=== PATIENT | female | born 1950 | race Caucasian/White ===

== ENCOUNTER 2017-07-21 08:55 | Day surgery (SDC) | payer MEDICARE ==
[~2017-07-21 08:55] MED LIST: RINGER'S SOLUTION,LACTATED 1,000 ML IV PRN
[2017-07-21] MEDS ORDERED: RINGER'S SOLUTION,LACTATED 1,000 ML IV PRN (10:28)
[2017-07-21 11:26] VITALS: BP 146/81
--- NOTE | 2017-07-21 15:39 | OR ---
Operative Report - Dictated Report Narrative: Operative Report Date of operation: 07/21/2017 Preoperative diagnosis: History of colon polyp. GERD symptoms despite medication Postoperative diagnosis: Hiatal hernia, gastropathy with gastric polyps ( pathology and CLOtest pending). Normal colonoscopy Operation: EGD with biopsies. Colonoscopy Surgeon: Dr Ho Anesthesia: DANIELE TREVINO CRNA Indications for procedure: The patient is a 67-year-old female referred by Dr. Mar. The patient had colonoscopy with removal of polyp with [facility] in 2012. There is no family history of colon cancer. She moves her bowels daily to every other day. She has significant GERD symptoms despite medication Findings: Large hiatal hernia with gastropathy and gastric polyps. Capacious colon otherwise normal exam to the cecum Narrative of procedure: The patient was identified preoperatively, and prior to the administration of anesthetic a multidisciplinary timeout was observed EGD: With the patient in the recumbent position, a bite-block was placed, intravenous sedation was administered, and the patient's eyes covered with a towel. The flexible fiberoptic gastroscope was advanced into the posterior pharynx which appeared normal. The supraglottic larynx appeared normal. The cords appeared normal, moved well, and opposed in the midline. The scope was advanced under direct vision into the proximal esophagus which appeared normal. The esophagus appeared freely distensible with normal mucosa. The esophageal mucosa appeared normal down to the gastroesophageal junction which was sharp and noninflamed. The GE junction appeared normally distensible. There was a large hiatal hernia. The scope was advanced into the stomach proper which was insufflated with air. Immediately apparent was carlisle gastric erythema with multiple fundic polyps. A retroflexed view of the gastric fundus clearly demonstrated the hiatal hernia but revealed no additional lesions. The pylorus appeared patent. The scope was advanced into the duodenal bulb which appeared normal. The scope was advanced further to the horizontal portion of the duodenum which appeared normal, specifically the villous architecture appeared well preserved and clear bile was present. The scope was slowly withdrawn through the duodenal bulb with confirmation that no active ulcer was present. The scope was withdrawn into the stomach and insurance healthcare representative biopsies of gastric mucosa obtained for CLOtest and pathology. The biopsy sites were seen to be hemostatic. The insufflated air was removed, the scope withdrawn from the patient, and this portion of the procedure terminated. COLONOSCOPY: The patient was then placed in the left lateral position, and the perineum was inspected. There was no evidence of pilonidal disease or skin breakdown. The external appearance of the anus was normal. Sphincter tone was good. The flexible fiberoptic colonoscope was inserted into the rectum which was insufflated with air. The rectal mucosa and submucosal vascular pattern appeared normal, the prep was seen to be complete. The scope was advanced through the sigmoid colon, up the descending colon, and around the splenic flexure where the triangular haustral architecture of the transverse colon was seen. The scope was advanced across the transverse colon, around the hepatic flexure to the cecum, where the confluence of tenia and the ileocecal valve were identified. The mucosa at this level appeared normal. The scope was then slowly withdrawn in a circular fashion so that all aspects of colonic mucosa were inspected. The colon was very capacious in character. The haustral architecture appeared well preserved throughout with no evidence of external compression. The mucosa and submucosal vascular pattern appeared normal, specifically there was no gross evidence to suggest colitis or inflammatory bowel disease and no AV malformations were seen. No kofi diverticular openings were demonstrated. No polyps were encountered. The scope was gradually withdrawn to the level of the rectum. As much insufflated air as possible was removed. The scope was withdrawn from the patient and the procedure terminated. The patient tolerated the anesthetic and procedure well without complication and was transferred back to the ambulatory surgery area awake and in stable condition. The patient remained stable throughout a period of postoperative observation. She denied abdominal discomfort, was able to tolerate by mouth intake, and was up without assistance. I shared the operative findings with the patient and she was given copies of the photographs which appear in the medical record. She was discharged home with instructions not to engage in hazardous activity today , but may resume normal activity tomorrow, and advance diet as tolerated. She is to continue those medications as listed in the history and physical exam. I made arrangements to contact her with the biopsy reports and will make additional recommendations for treatment and follow-up based upon those results. Reviewed and electronically signed
== END 2017-07-21 08:56 | disposition home or self-care (01) ==
LOC: AMB 08:55
PROVIDERS: ATTEND Surgery
PROC: 0DJD8ZZ Inspection of Lower Intestinal Tract, Via Natural or Artificial Opening Endoscopic (ICD-10-PCS; principal; 2017-07-21)
PROC: 0DB68ZX Excision of Stomach, Via Natural or Artificial Opening Endoscopic, Diagnostic (ICD-10-PCS; 2017-07-21)
DX: Z86.010 Personal history of colon polyps; F41.9 Anxiety disorder, unspecified; I10 Essential (primary) hypertension; K31.7 Polyp of stomach and duodenum; F32.9 Major depressive disorder, single episode, unspecified; Z12.11 Encounter for screening for malignant neoplasm of colon; K29.70 Gastritis, unspecified, without bleeding; F90.9 Attention-deficit hyperactivity disorder, unspecified type; K21.9 Gastro-esophageal reflux disease without esophagitis; Z68.29 Body mass index [BMI] 29.0-29.9, adult; K44.9 Diaphragmatic hernia without obstruction or gangrene
CPT/HCPCS: 43239; 87081; G0105